=== PATIENT | male | born 1960 | race Caucasian/White ===

== ENCOUNTER 2023-10-09 00:08 | Inpatient (IN) | payer OTHER ==
[2023-10-09 00:32] VITALS: BMI 36.7
[2023-10-09] MEDS ORDERED: Acetaminophen 650 MG Suppository PR PRN (01:28)
[2023-10-09] MEDS ORDERED: Ondansetron PF 4 MG/2 ML Vial IVP PRN (01:28)
[2023-10-09] MEDS ORDERED: Ondansetron ODT 4 MG TAB PO PRN (01:28)
[2023-10-09] MEDS ORDERED: Acetaminophen 325 MG TAB PO PRN (01:28)
[2023-10-09] MEDS: Dextrose 5%-Lactated Ringers 1,000 ML IV SCH (02:39)
[2023-10-09] MEDS: Piperacillin/Tazobactam 4.5 GM in Sodium Chloride 0.9% 100 ML IVPB SCH (02:40)
[2023-10-09 02:44] LABS: #Basophils 0.03 10x3/uL (0.0-0.2); %Basophils 0.5 % (0.0-1.0); %Eosinophils 1.7 % (0.0-10.0); %Lymphocytes 8.1 % (21.0-51.0); %Monocytes 14.2 % (0.0-10.0); %Neutrophils 75.2 % (42.0-75.0); Hematocrit 46.4 % (42.0-52.0); Hemoglobin 15.6 g/dL (14.0-18.0); Mean Corpuscular HGB CONC 33.6 g/dL (32.0-36.0); Mean Corpuscular Hemoglobin 32.9 pg (27.0-31.0); Mean Corpuscular Volume 97.9 fL (78.0-98.0); Mean Platelet Volume 11.6 fL (7.4-10.4); Platelet Count 184 10x3/uL (130-400); RBC Distribution Width 12.8 % (11.5-14.5); Red Blood Cell (RBC) Count 4.74 mill/uL (4.70-6.10)
[2023-10-09 03:22] LABS: ALT (SGPT) 112 U/L (8-55); AST (SGOT) 65 U/L (5-34); Albumin 2.9 g/dL (3.4-4.8); Alkaline Phosphatase 94 U/L (40-110); Anion Gap 12 mmol/L (10-20); BUN (Urea Nitrogen) 10 mg/dL (8.4-25.7); Bilirubin, Total 4.5 mg/dL (0.2-1.2); Calc. Creatinine Clearance 123 mL/min (70-130); Calcium 8.7 mg/dL (7.8-10.44); Carbon Dioxide 24 mmol/L (23-31); Chloride 106 mmol/L (98-107); Estimated GFR 87; Globulin 3.2 g/dL (2.4-3.5); Glucose 158 mg/dL (80-115); Potassium 3.7 mmol/L (3.5-5.1); Protein, Total 6.1 g/dL (5.8-8.1); Sodium 138 mmol/L (136-145)
[2023-10-09] MEDS ORDERED: Ondansetron PF 4 MG/2 ML Vial ONE (07:33)
[2023-10-09] MEDS ORDERED: Lidocaine 1% PF 5 ML VIAL ONE (07:33)
[2023-10-09] MEDS ORDERED: Dexamethasone 20 MG/5 ML VIAL ONE (07:33)
[2023-10-09] MEDS ORDERED: Rocuronium Bromide 10 MG/ML (10ML VIAL) ONE (07:33)
[2023-10-09] MEDS ORDERED: PROPOFOL 20 ML ONE (07:34)
[2023-10-09 08:11] LABS: #Basophils 0.04 10x3/uL (0.0-0.2); %Basophils 0.6 % (0.0-1.0); %Eosinophils 1.4 % (0.0-10.0); %Lymphocytes 9.3 % (21.0-51.0); %Monocytes 13.2 % (0.0-10.0); %Neutrophils 74.9 % (42.0-75.0); Hematocrit 46.7 % (42.0-52.0); Hemoglobin 15.8 g/dL (14.0-18.0); Mean Corpuscular HGB CONC 33.8 g/dL (32.0-36.0); Mean Corpuscular Hemoglobin 32.7 pg (27.0-31.0); Mean Corpuscular Volume 96.7 fL (78.0-98.0); Mean Platelet Volume 11.9 fL (7.4-10.4); Platelet Count 187 10x3/uL (130-400); RBC Distribution Width 12.9 % (11.5-14.5); Red Blood Cell (RBC) Count 4.83 mill/uL (4.70-6.10)
[2023-10-09 08:15] LABS: ALT (SGPT) 111 U/L (8-55); AST (SGOT) 70 U/L (5-34); Albumin 2.8 g/dL (3.4-4.8); Alkaline Phosphatase 106 U/L (40-110); Anion Gap 16 mmol/L (10-20); BUN (Urea Nitrogen) 11 mg/dL (8.4-25.7); Bilirubin, Total 4.1 mg/dL (0.2-1.2); Calc. Creatinine Clearance 132 mL/min (70-130); Calcium 8.6 mg/dL (7.8-10.44); Carbon Dioxide 18 mmol/L (23-31); Chloride 108 mmol/L (98-107); Estimated GFR 95; Globulin 3.6 g/dL (2.4-3.5); Glucose 175 mg/dL (80-115); Potassium 4.1 mmol/L (3.5-5.1); Protein, Total 6.4 g/dL (5.8-8.1); Sodium 138 mmol/L (136-145)
[2023-10-09] MEDS: Famotidine/PF 20 mg/2ml Vial SLOW IVP SCH (09:44)
[2023-10-09] MEDS: Allopurinol 300 MG TAB PO SCH ×2 (10:54→22:11)
[2023-10-09] MEDS: Venlafaxine 75 MG TAB PO SCH ×2 (10:55→22:11)
[2023-10-09] MEDS: Losartan 25 MG TAB PO SCH ×2 (10:55→22:10)
[2023-10-09] MEDS: Famotidine 20 MG TAB PO SCH (10:55)
[2023-10-09] MEDS ORDERED: Indomethacin 50 MG SUPP ONE (11:25)
[2023-10-09] MEDS ORDERED: Iopamidol 30 ML ONE (11:27)
[2023-10-09] MEDS ORDERED: fentaNYL 50 mcg/mL 1 mL Vial ONE ×2 (11:32→11:49)
[2023-10-09] MEDS ORDERED: SUGAMMADEX SODIUM 200 MG/2 ML VIAL ONE ×2 (11:32→12:16)
[2023-10-09] MEDS ORDERED: Midazolam HCl 2 mg/2 ml Vial ONE (11:39)
[2023-10-09] MEDS ORDERED: PHENYLEPHRINE-NS 100 MCG/ML 10 ML SYRINGE ONE (12:14)
[2023-10-09] MEDS ORDERED: Albuterol HFA (OR) 200 PUFF INH ONE (12:28)
[2023-10-09] MEDS: Morphine 4 MG/ML VIAL SLOW IVP PRN (16:19)
[2023-10-09] MEDS: Zolpidem Tartrate 5 MG TAB PO PRN (22:11)
[2023-10-09] MEDS: Simvastatin 10 MG TAB PO SCH (22:23)
[2023-10-10] MEDS ORDERED: Allopurinol 300 MG TAB PO SCH (02:00)
[2023-10-10] MEDS ORDERED: Venlafaxine 75 MG TAB PO SCH (02:00)
[2023-10-10] MEDS ORDERED: Losartan 25 MG TAB PO SCH (02:00)
[2023-10-10 05:43] LABS: ALT (SGPT) 120 U/L (8-55); AST (SGOT) 109 U/L (5-34); Albumin 2.6 g/dL (3.4-4.8); Alkaline Phosphatase 124 U/L (40-110); Anion Gap 14 mmol/L (10-20); BUN (Urea Nitrogen) 13 mg/dL (8.4-25.7); Bilirubin, Total 4.3 mg/dL (0.2-1.2); Calc. Creatinine Clearance 122 mL/min (70-130); Calcium 8.4 mg/dL (7.8-10.44); Carbon Dioxide 19 mmol/L (23-31); Cardiac Risk 23.9 (Less than 4.5); Chloride 110 mmol/L (98-107); Cholesterol 191 mg/dl (< 200 Desired); Estimated GFR 86; Globulin 3.4 g/dL (2.4-3.5); Glucose 217 mg/dL (80-115); HDL Cholesterol 8 mg/dL (>60 Neg Risk); LDL Cholesterol, Calculated 131 mg/dL; Lipase 23 U/L (8-78); Potassium 4.7 mmol/L (3.5-5.1); Sodium 138 mmol/L (136-145); Triglycerides 262 mg/dL (Less than 150)
[2023-10-10 05:54] LABS: #Basophils Less than 0.03 10x3/uL (0.0-0.2); #Eosinphils Less than 0.03 10x3/uL (0.0-0.7); %Lymphocytes 6.5 % (21.0-51.0); %Monocytes 10.1 % (0.0-10.0); %Neutrophils 82.7 % (42.0-75.0); Hematocrit 44.7 % (42.0-52.0); Hemoglobin 14.8 g/dL (14.0-18.0); Mean Corpuscular HGB CONC 33.1 g/dL (32.0-36.0); Mean Corpuscular Hemoglobin 32.7 pg (27.0-31.0); Mean Corpuscular Volume 98.7 fL (78.0-98.0); Mean Platelet Volume 11.7 fL (7.4-10.4); Platelet Count 233 10x3/uL (130-400); RBC Distribution Width 12.9 % (11.5-14.5); Red Blood Cell (RBC) Count 4.53 mill/uL (4.70-6.10)
[2023-10-10] MEDS: Sodium Chloride 0.9% 1,000 ML IV SCH (11:33)
[2023-10-10] MEDS ORDERED: traMADol HCl 50 MG TAB PO PRN (11:38)
[2023-10-10 16:37] LABS: Bacteria/HPF None Seen HPF (None Seen); Bilirubin 2+ (Negative); Blood, Urine Negative (Negative); CAUTI Indications for Culture Fever or rigors; Clarity Clear (Clear); Glucose, Urine (Dipstick) Normal (Negative); Ketone, Urine Negative (Negative); Leukocyte Negative Leu/uL (Negative); Nitrite Negative (Negative); Protein, Urine (Dipstick) 10 mg/dL (Neg-Trace); RBC/HPF 0-3 HPF (0-3); Specific Gravity, Urine 1.033 (1.002-1.036); Squamous Epithelial 0-3 HPF (0-3); Urobilinogen Normal mg/dL (Less than 2); pH, Urine 5.5 (5.0-9.0)
[2023-10-10 16:41] LABS: Urine Culture Reflex No No
[2023-10-11 05:46] LABS: #Basophils 0.06 10x3/uL (0.0-0.2); %Basophils 0.9 % (0.0-1.0); %Eosinophils 2.8 % (0.0-10.0); %Lymphocytes 19.8 % (21.0-51.0); %Monocytes 16.2 % (0.0-10.0); %Neutrophils 59.6 % (42.0-75.0); Hematocrit 44.5 % (42.0-52.0); Hemoglobin 15.2 g/dL (14.0-18.0); Mean Corpuscular HGB CONC 34.2 g/dL (32.0-36.0); Mean Corpuscular Hemoglobin 33.9 pg (27.0-31.0); Mean Corpuscular Volume 99.1 fL (78.0-98.0); Mean Platelet Volume 11.6 fL (7.4-10.4); Platelet Count 226 10x3/uL (130-400); RBC Distribution Width 13.3 % (11.5-14.5); Red Blood Cell (RBC) Count 4.49 mill/uL (4.70-6.10)
[2023-10-11 06:23] LABS: ALT (SGPT) 169 U/L (8-55); AST (SGOT) 189 U/L (5-34); Albumin 2.5 g/dL (3.4-4.8); Alkaline Phosphatase 166 U/L (40-110); Anion Gap 15 mmol/L (10-20); BUN (Urea Nitrogen) 17 mg/dL (8.4-25.7); Bilirubin, Total 5.1 mg/dL (0.2-1.2); Calc. Creatinine Clearance 115 mL/min (70-130); Carbon Dioxide 21 mmol/L (23-31); Chloride 108 mmol/L (98-107); Estimated GFR 80; Globulin 3.1 g/dL (2.4-3.5); Glucose 124 mg/dL (80-115); Potassium 3.7 mmol/L (3.5-5.1); Protein, Total 5.6 g/dL (5.8-8.1); Sodium 140 mmol/L (136-145)
[2023-10-11] MEDS: Lactated Ringer's 1,000 ML IV SCH (10:22)
[2023-10-11] MEDS ORDERED: Promethazine HCl 12.5 MG in Sodium Chloride 0.9% 50 ML IVPB PRN (14:18)
[2023-10-11] MEDS: LevoFLOXacin 500 mg/D5W 500 MG in Premix 1 BAG IVPB SCH (15:24)
[2023-10-12 08:07] LABS: #Basophils 0.13 10x3/uL (0.0-0.2); %Basophils 1.5 % (0.0-1.0); %Eosinophils 3.7 % (0.0-10.0); %Lymphocytes 23.6 % (21.0-51.0); %Monocytes 14.3 % (0.0-10.0); %Neutrophils 53.4 % (42.0-75.0); ALT (SGPT) 169 U/L (8-55); AST (SGOT) 119 U/L (5-34); Albumin 2.6 g/dL (3.4-4.8); Alkaline Phosphatase 193 U/L (40-110); Anion Gap 12 mmol/L (10-20); BUN (Urea Nitrogen) 15 mg/dL (8.4-25.7); Bilirubin, Total 3.6 mg/dL (0.2-1.2); Calc. Creatinine Clearance 124 mL/min (70-130); Calcium 8.7 mg/dL (7.8-10.44); Carbon Dioxide 27 mmol/L (23-31); Chloride 106 mmol/L (98-107); Estimated GFR 88; Globulin 3.3 g/dL (2.4-3.5); Glucose 105 mg/dL (80-115); Hematocrit 44.9 % (42.0-52.0); Hemoglobin 15.6 g/dL (14.0-18.0); Mean Corpuscular HGB CONC 34.7 g/dL (32.0-36.0); Mean Corpuscular Hemoglobin 32.6 pg (27.0-31.0); Mean Corpuscular Volume 93.7 fL (78.0-98.0); Mean Platelet Volume 11.8 fL (7.4-10.4); Platelet Count 263 10x3/uL (130-400); Potassium 3.8 mmol/L (3.5-5.1); Protein, Total 5.9 g/dL (5.8-8.1); RBC Distribution Width 13.2 % (11.5-14.5); Red Blood Cell (RBC) Count 4.79 mill/uL (4.70-6.10); Sodium 141 mmol/L (136-145)
[2023-10-12] MEDS ORDERED: Magnevist 469MG/ML 20 ML VIAL ONE (09:43)
[2023-10-12 18:21] VITALS: BP 167/104; TEMP 98.3
== END 2023-10-12 18:37 | disposition home or self-care (01) | DRG 872 ==
LOC: 2SE 00:08 → SURG A 12:34 → T4-B 13:57
PROVIDERS: ADMIT Student in an Organized Health Care Education/Training Program; ATTEND Internal Medicine
PROC: 0FC98ZZ Extirpation of Matter from Common Bile Duct, Via Natural or Artificial Opening Endoscopic (ICD-10-PCS; principal; 2023-10-09)
DX: A41.9 Sepsis, unspecified organism (principal); K80.32 Calculus of bile duct with acute cholangitis without obstruction; K83.09 Other cholangitis; I10 Essential (primary) hypertension; M10.9 Gout, unspecified; E78.5 Hyperlipidemia, unspecified; Z79.899 Other long term (current) drug therapy
CPT/HCPCS: 36415; 74177; 74183; 74330; 76705; 80053; 80061; 80074; 81001; 83605; 83690; 84484; 85025; 86140; 86141; 87040; 87077; 87149; 87186; 93005; 96374; A9579; J1100; J1956; J2250; J2270; J2405; J2543; J2704; J3010; J3490; J7050; J7120; Q9967; S0028